=== PATIENT | male | born 1975 | race Two or more races ===

== ENCOUNTER 2017-12-24 15:33 | Inpatient (IN) | payer BC ==
[2017-12-24] MEDS ORDERED: Sodium Chloride 0.9% 2.5 ML Syringe FLUSH PRN (16:18)
[2017-12-24] MEDS ORDERED: Heparin Sodium 5,000 Units/ML Vial IVPUSH ONE (16:18)
--- NOTE | 2017-12-24 16:59 | PCM.HP ---
H&P History of Present Illness - General Date of Service: 12/24/17 Admit Problem/Dx: Admission Diagnosis/Problem Admission Diagnosis/Problem PE, Pulmonary embolism Source of Information: Patient, Old Records (clinic records) History Limitations: Reports: No Limitations - History of Present Illness Initial Comments - Free Text/Narative: This 42 year old male otherwise healthy presented to the clinic today with concerns of chest pain which has been there since Last . He reports shortness of breath, cough with exertion and shortness of breath with exertion as well. The chest pain is midsternal and worse with deep breathing or coughing. He denies hemoptysis. No wheezing. No lightheadedness or dizziness. 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 He denies lower leg swelling, pain or redness. He denies nausea, vomiting, fevers, abdominal pain urinary troubles or focal neurological deficits. He reports smoking 1/2 pp of cigarettes, no alcohol or recreational drug use. In the clinic leukocytosis noted at 14,510, hgb 17.2, CMP WNL. D Dimer elevated at 9.58. CXR negative. CT angio of chest revealed bilateral pulmonary emboli with a significant clot burden, mild atelectasis in the lungs, but no focal consolidation or infiltrate. He was admitted for pulmonary emboli with significant clot burden. He denies family history of clotting disorders, never had a clot in the past. No other long distance travel besides [employer] job and no new medications. PCP, Aaliyah Noyola [employer] - Related Data Allergies/Adverse Reactions: Allergies Allergy/AdvReac Type Severity Reaction Status Date / Time No Known Allergies Allergy Verified 12/24/17 14:45 Past Medical History - Past Health History Medical/Surgical History: Denies Medical/Surgical History Cardiovascular History: Reports: None. Denies: CAD, High Cholesterol, Hypertension Respiratory History: Denies: PE Gastrointestinal History: Reports: None. Denies: GERD, GI Bleed Genitourinary History: Reports: None Musculoskeletal History: Reports: None Psychiatric History: Reports: None Endocrine/Metabolic History: Reports: Obesity/BMI 30+. 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 Denies: Fever, Chills HEENT: Reports: No Symptoms. Denies: Headaches, Sinus Congestion, Sore Throat, Vertigo Pulmonary: Reports: Shortness of Breath, Pleuritic Chest Pain, Cough (dry, non productive). Denies: Sputum, Hemoptysis Cardiovascular: Reports: No Symptoms. Denies: Chest Pain, Palpitations, Edema, Lightheadedness, Syncope Gastrointestinal: Reports: No Symptoms. Denies: Abdominal Pain, Black Stool, Bloody Stool, Nausea, Vomiting Genitourinary: Reports: No Symptoms. Denies: Dysuria, Frequency, Burning Musculoskeletal: Reports: Back Pain (upper back with deep breathing) Psychiatric: Reports: No Symptoms Neurological: Reports: No Symptoms Hematologic/Lymphatic: Reports: No Symptoms Immunologic: Reports: No Symptoms Exam - Exam Exam: See Below - Vital Signs Weight: 112.236 kg - Exam Quality Assessment: DVT Prophylaxis. No: Supplemental Oxygen General: Alert, Oriented, Cooperative HEENT: Conjunctiva Clear, Mucosa Moist & [place], Pupils Equal, Pupils Reactive Neck: Supple Lungs: Normal Respiratory Effort (at rest), Decreased Breath Sounds (bilateral bases) Cardiovascular: Regular Rate, Regular Rhythm, Normal S1, Normal S2 GI/Abdominal Exam: Normal Bowel Sounds, Soft, Non-Tender Back Exam: Normal Inspection, Full Range of Motion Extremities: Normal Inspection, Normal Range of Motion, Non-Tender, No Pedal Edema. No: Redness Neurological: Cranial Nerves Intact Neuro Extensive - Mental Status: Alert, Oriented x3 Psychiatric: Alert, Normal Affect, Normal Mood - Problem List (1) Pulmonary emboli SNOMED Code(s): 54915051 ICD Code: I26.99 - OTHER PULMONARY EMBOLISM WITHOUT ACUTE COR PULMONALE Status: Acute Current Visit: Yes Qualifiers: Pulmonary embolism type: other Chronicity: acute Acute cor pulmonale presence: without acute cor pulmonale Qualified Code(s): I26.99 - Other pulmonary embolism without acute cor pulmonale (2) Tobacco abuse SNOMED Code(s): 516559615 ICD Code: Z72.0 - TOBACCO USE Status: Chronic Current Visit: Yes Problem List Initiated/Reviewed/Updated: Yes Orders Last 24hrs: Active Orders 24 hr Category Date Time Status Patient Status [ADT] Routine ADT 12/24/17 16:18 Ordered Intake and Output [RC] QSHIFT Care 12/24/17 16:19 Ordered Oxygen Therapy [RC] PRN Care 12/24/17 16:18 Ordered Pulse Oximetry [RC] CONTINUOUS Care 12/24/17 16:19 Ordered Telemetry Monitoring [Cardiac Monitoring] [RC] . Care 12/24/17 16:31 Ordered DIRECTED Up With Assistance [RC] ASDIRECTED Care 12/24/17 16:18 Ordered VTE/DVT Education [RC] PER UNIT ROUTINE Care 12/24/17 16:18 Ordered Vital Signs [RC] Q4H Care 12/24/17 16:18 Ordered Regular Diet [DIET] Diet 12/24/17 Dinner Ordered PTT,PARTIAL THROMBOPLSTIN TIME [COAG] Stat Lab 12/24/17 16:18 Ordered Heparin Sod,Pork In 0.45% Nacl [Heparin-1/2Ns 25,000 Med 12/24/17 16:30 Ordered Units/500] 25,000 unit in 500 ml IV TITRATE Sodium Chloride 0.9% [Saline Flush] Med 12/24/17 16:18 Ordered 2.5 ml FLUSH ASDIRECTED PRN Saline Lock Insert [OM.PC] Routine Oth 12/24/17 16:18 Ordered Resuscitation Status Routine Resus Stat 12/24/17 16:18 Ordered Medication Orders Heparin Sodium/Sodium Chloride (Heparin-1/2ns 25,000 Units/500) 25,000 unit in 500 mls @ 40.405 mls/hr IV TITRATE JUAN MIGUEL; Protocol Sodium Chloride (Saline Flush) 2.5 ml FLUSH ASDIRECTED PRN PRN Reason: Keep Vein Open Assessment/Plan Comment:: This 42 year old male admitted with bilateral pulmonary emoboli 1. PE: significant clot burden noted on CT. Will start Heparin gtt and monitor PTTs. When stable will consider NOACs. 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 Monitor on telemetry and continuous pulse ox. Leukocytosis likely secondary to PE. Will recheck in am. Tramadol for pain PRN. 2. Tobacco abuse: Hold off on nicotine replacement secondary to possible tachycardia and continuous monitoring with PEs. Dipos: 2-3 days pending improvement.
[2017-12-24] MEDS ORDERED: traMADol 50 MG Tab PO PRN (17:09)
[2017-12-24] MEDS ORDERED: Morphine 2 MG/ML Syringe IVPUSH PRN (17:10)
[2017-12-24] MEDS: Heparin Sod,Pork In 0.45% Nacl 25,000 UNIT/500 ML IV.SOLN IV SCH (17:42)
[2017-12-24] MEDS: Acetaminophen 325 MG Tab PO PRN (20:54)
[2017-12-25] MEDS: Heparin Sod,Pork In 0.45% Nacl 25,000 UNIT/500 ML IV.SOLN IV SCH ×2 (06:12→19:17)
--- NOTE | 2017-12-25 08:30 | PCM.PN ---
- General Info Date of Service: 12/25/17 Admission Dx/Problem (Free Text): Admission Diagnosis/Problem Admission Diagnosis/Problem PE, Pulmonary embolism Subjective Update: Feeling good today, didn't sleep much with pulse ox going off. Oxygen placed overnight due to dropping to mid 80s. Chest pain has improved, very little now. Still has dyspnea, especially with exertion. Otherwise no other concerns. Functional Status: Reports: Pain Controlled, Tolerating Diet, Ambulating, Urinating - Review of Systems General: Reports: No Symptoms. Denies: Fever, Weakness, Fatigue, Malaise HEENT: Reports: No Symptoms. Denies: Headaches, Sore Throat, Visual Changes Pulmonary: Reports: Pleuritic Chest Pain (with deep breathing and cough, but improved.), Cough (intermittent, dry). Denies: Hemoptysis Cardiovascular: Reports: No Symptoms. Denies: Chest Pain, Palpitations, Lightheadedness Gastrointestinal: Reports: No Symptoms. Denies: Abdominal Pain, Melena, Nausea Genitourinary: Reports: No Symptoms. Denies: Dysuria, Frequency, Burning Musculoskeletal: Reports: No Symptoms Skin: Reports: No Symptoms Neurological: Reports: No Symptoms Psychiatric: Reports: No Symptoms - Patient Data Vitals - Most Recent: Last Vital Signs Temp 98.2 F 12/25/17 08:00 Pulse 74 12/25/17 08:00 Resp 18 12/25/17 08:00 BP 134/70 12/25/17 08:00 Pulse Ox 95 12/25/17 08:00 Weight - Most Recent: 112.236 kg I&O - Last 24 Hours: Intake & Output 12/24/17 12/25/17 12/25/17 22:59 06:59 14:59 Intake Total 943 Output Total 630 Balance 313 Lab Results Last 24 Hours: Laboratory Results - last 24 hr 12/24/17 12/24/17 12/25/17 Range/Units 16:51 20:50 05:00 WBC 12.17 H (4.0-11.0) K/uL RBC 5.36 (4.50-5.90) M/uL Hgb 15.4 (13.0-17.0) g/dL Hct 44.5 (38.0-50.0) % MCV 83.0 (80.0-98.0) fL MCH 28.7 (27.0-32.0) pg MCHC 34.6 (31.0-37.0) g/dL RDW Std Deviation 41.9 (28.0-62.0) fl RDW Coeff of Isael 14 (11.0-15.0) % Plt Count 151 (150-400) K/uL MPV 9.60 (7.40-12.00) fL Neut % (Auto) 60.1 (48.0-80.0) % Lymph % (Auto) 22.1 (16.0-40.0) % [place] % (Auto) 9.0 (0.0-15.0) % Eos % (Auto) 8.1 H (0.0-7.0) % Baso % (Auto) 0.7 (0.0-1.5) % Neut # (Auto) 7.3 H (1.4-5.7) K/uL Lymph # (Auto) 2.7 H (0.6-2.4) K/uL Gilmer # (Auto) 1.1 H (0.0-0.8) K/uL Eos # (Auto) 1.0 H (0.0-0.7) K/uL Baso # (Auto) 0.1 (0.0-0.1) K/uL Nucleated RBC % 0.0 /100WBC Nucleated RBCs # 0 K/uL APTT 28.8 61.3 H (18.6-31.3) SEC Sodium (136-148) mmol/L Potassium (3.5-5.1) mmol/L Chloride (98-107) mmol/L Carbon Dioxide (21.0-32.0) mmol/L BUN (7.0-18.0) mg/dL Creatinine (0.8-1.3) mg/dL Est Cr Clr Drug Dosing mL/min Estimated GFR (MDRD) ml/min Glucose (74-106) mg/dL Calcium (8.5-10.1) mg/dL 12/25/17 12/25/17 Range/Units 05:00 05:00 WBC (4.0-11.0) K/uL RBC (4.50-5.90) M/uL Hgb (13.0-17.0) g/dL Hct (38.0-50.0) % MCV (80.0-98.0) fL MCH (27.0-32.0) pg MCHC (31.0-37.0) g/dL RDW Std Deviation (28.0-62.0) fl RDW Coeff of Isael (11.0-15.0) % Plt Count (150-400) K/uL MPV (7.40-12.00) fL Neut % (Auto) (48.0-80.0) % Lymph % (Auto) (16.0-40.0) % [place]mer % (Auto) (0.0-15.0) % Eos % (Auto) (0.0-7.0) % Baso % (Auto) (0.0-1.5) % Neut # (Auto) (1.4-5.7) K/uL Lymph # (Auto) (0.6-2.4) K/uL Gilmer # (Auto) (0.0-0.8) K/uL Eos # (Auto) (0.0-0.7) K/uL Baso # (Auto) (0.0-0.1) K/uL Nucleated RBC % /100WBC Nucleated RBCs # K/uL APTT 72.0 H (18.6-31.3) SEC Sodium 140 (136-148) mmol/L Potassium 3.8 (3.5-5.1) mmol/L Chloride 104 (98-107) mmol/L Carbon Dioxide 27.8 (21.0-32.0) mmol/L BUN 17 (7.0-18.0) mg/dL Creatinine 1.4 H (0.8-1.3) mg/dL Est Cr Clr Drug Dosing 79.92 mL/min Estimated GFR (MDRD) 55.6 ml/min Glucose 114 H (74-106) mg/dL Calcium 8.3 L (8.5-10.1) mg/dL Med Orders - Current: Current Medications Acetaminophen (Tylenol) 650 mg PO Q4H PRN PRN Reason: Pain Last Admin: 12/24/17 20:54 Dose: 650 mg Heparin Sodium/Sodium Chloride (Heparin-1/2ns 25,000 Units/500) 25,000 unit in 500 mls @ 40.405 mls/hr IV TITRATE JUAN MIGUEL; Protocol Last Admin: 12/25/17 06:12 Dose: 16 units/kg/hr, 35.916 mls/hr Morphine Sulfate (Morphine) 2 mg IVPUSH Q2H PRN PRN Reason: severe pain 7-10/10 Sodium Chloride (Saline Flush) 2.5 ml FLUSH ASDIRECTED PRN PRN Reason: Keep Vein Open Tramadol HCl (Ultram) 50 mg PO Q4H PRN PRN Reason: Pain Discontinued Medications Heparin Sodium (Porcine) (Heparin Sodium) 5,000 units IVPUSH .BOLUS ONE Stop: 12/24/17 16:19 Last Admin: 12/24/17 17:41 Dose: 5,000 units - Exam General: Alert, Oriented, Cooperative, No Acute Distress Neck: Supple Lungs: Clear to Auscultation, Normal Respiratory Effort Cardiovascular: Regular Rate, Regular Rhythm GI/Abdominal Exam: Normal Bowel Sounds, Soft, Non-Tender Back Exam: Normal Inspection, Full Range of Motion Extremities: Normal Inspection, Normal Range of Motion, Non-Tender Neurological: No New Focal Deficit Psy/Mental Status: Alert, Normal Affect, Normal Mood - Problem List & Annotations (1) Pulmonary emboli SNOMED Code(s): 65274559 Code(s): I26.99 - OTHER PULMONARY EMBOLISM WITHOUT ACUTE COR PULMONALE Status: Acute Current Visit: Yes Qualifiers: Pulmonary embolism type: other Chronicity: acute Acute cor pulmonale presence: without acute cor pulmonale Qualified Code(s): I26.99 - Other pulmonary embolism without acute cor pulmonale (2) Tobacco abuse SNOMED Code(s): 802931256 Code(s): Z72.0 - TOBACCO USE Status: Chronic Current Visit: Yes - Problem List Review Problem List Initiated/Reviewed/Updated: Yes - My Orders Last 24 Hours: My Active Orders 12/24/17 16:18 Patient Status [ADT] Routine Oxygen Therapy [RC] PRN Up With Assistance [RC] ASDIRECTED VTE/DVT Education [RC] PER UNIT ROUTINE Vital Signs [RC] Q4H Sodium Chloride 0.9% [Saline Flush] 2.5 ml FLUSH ASDIRECTED PRN Saline Lock Insert [OM.PC] Routine Resuscitation Status Routine 12/24/17 16:19 Intake and Output [RC] Q12H Pulse Oximetry [RC] CONTINUOUS 12/24/17 16:30 Heparin Sod,Pork In 0.45% Nacl [Heparin-1/2Ns 25,000 Units/500] 25,000 unit in 500 ml IV TITRATE 12/24/17 16:31 Telemetry Monitoring [Cardiac Monitoring] [RC] Q8H 12/24/17 17:09 Acetaminophen [Tylenol] 650 mg PO Q4H PRN traMADol [Ultram] 50 mg PO Q4H PRN 12/24/17 17:10 Morphine 2 mg IVPUSH Q2H PRN 12/24/17 Dinner Regular Diet [DIET] 12/25/17 11:00 PTT,PARTIAL THROMBOPLSTIN TIME [COAG] Q6H 12/25/17 17:00 PTT,PARTIAL THROMBOPLSTIN TIME [COAG] Q6H 12/25/17 23:00 PTT,PARTIAL THROMBOPLSTIN TIME [COAG] Q6H 12/26/17 05:11 BMP [BASIC METABOLIC PANEL,BMP] [CHEM] AM CBC WITH AUTO DIFF [HEME] AM 12/27/17 05:11 BMP [BASIC METABOLIC PANEL,BMP] [CHEM] AM CBC WITH AUTO DIFF [HEME] AM - Plan Plan:: This 42 year old male admitted with bilateral pulmonary emoboli 1. PE: Improved. Significant clot burden noted on CT. Continue Heparin gtt and monitor PTTs. When stable will consider NOACs. 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 Monitor on telemetry and continuous pulse ox. Leukocytosis improving. Will recheck in am. Tylenol and Tramadol for pain PRN. 2. Tobacco abuse: Hold off on nicotine replacement secondary to possible tachycardia and continuous monitoring with PEs. Dipos: 2-3 days pending improvement.
[2017-12-25] MEDS ORDERED: Heparin Sodium 5,000 Units/ML Vial IV ONE (18:00)
[2017-12-26 06:10] LABS: CHLORIDE,CL 105 mmol/L (98-107); SODIUM,NA 139 mmol/L (136-148)
[2017-12-26] MEDS: Heparin Sod,Pork In 0.45% Nacl 25,000 UNIT/500 ML IV.SOLN IV SCH (07:28)
--- NOTE | 2017-12-26 08:44 | PCM.PN ---
- General Info Date of Service: 12/26/17 Admission Dx/Problem (Free Text): Admission Diagnosis/Problem Admission Diagnosis/Problem PE, Pulmonary embolism Subjective Update: Reports shortness of breath is still there, little bit better. No further pain. But now reports R anterior knee pain just below knee cap, mainly with movement. Denies calf pain or tenderness. Functional Status: Reports: Pain Controlled, Tolerating Diet, Ambulating, Urinating - Review of Systems General: Reports: No Symptoms. Denies: Fever, Weakness Pulmonary: Reports: Shortness of Breath, Cough. Denies: Pleuritic Chest Pain, Sputum Cardiovascular: Reports: No Symptoms. Denies: Chest Pain, Palpitations, Edema Gastrointestinal: Reports: No Symptoms. Denies: Abdominal Pain, Nausea, Vomiting Genitourinary: Reports: No Symptoms. Denies: Dysuria, Frequency, Burning Musculoskeletal: Reports: No Symptoms Neurological: Reports: No Symptoms Psychiatric: Reports: No Symptoms - Patient Data Vitals - Most Recent: Last Vital Signs Temp 98.7 F 12/26/17 04:00 Pulse 82 12/26/17 04:00 Resp 20 12/26/17 04:00 BP 108/74 12/26/17 04:00 Pulse Ox 98 12/26/17 04:00 Weight - Most Recent: 112.236 kg I&O - Last 24 Hours: Intake & Output 12/25/17 12/26/17 12/26/17 22:59 06:59 14:59 Intake Total 662 Output Total 400 Balance 262 Lab Results Last 24 Hours: Laboratory Results - last 24 hr 12/25/17 12/25/17 12/25/17 Range/Units 11:15 17:06 22:53 WBC (4.0-11.0) K/uL RBC (4.50-5.90) M/uL Hgb (13.0-17.0) g/dL Hct (38.0-50.0) % MCV (80.0-98.0) fL MCH (27.0-32.0) pg MCHC (31.0-37.0) g/dL RDW Std Deviation (28.0-62.0) fl RDW Coeff of Isael (11.0-15.0) % Plt Count (150-400) K/uL MPV (7.40-12.00) fL Add Manual Diff Neutrophils % (Manual) (48.0-80.0) % Band Neutrophils % % Lymphocytes % (Manual) (16.0-40.0) % Monocytes % (Manual) (0.0-15.0) % Eosinophils % (Manual) (0.0-7.0) % Basophils % (Manual) (0.0-1.5) % Myelocytes % % Nucleated RBC % /100WBC Absolute Seg Neuts (1.4-5.7) Band Neutrophils # Lymphocytes # (Manual) (0.6-2.4) Monocytes # (Manual) (0.0-0.8) Eosinophils # (Manual) (0.0-0.7) Basophils # (Manual) (0.0-0.1) Absolute Myelocytes Nucleated RBCs # K/uL APTT 49.9 H 46.2 H 56.2 H (18.6-31.3) SEC Sodium (136-148) mmol/L Potassium (3.5-5.1) mmol/L Chloride (98-107) mmol/L Carbon Dioxide (21.0-32.0) mmol/L BUN (7.0-18.0) mg/dL Creatinine (0.8-1.3) mg/dL Est Cr Clr Drug Dosing mL/min Estimated GFR (MDRD) ml/min Glucose (74-106) mg/dL Calcium (8.5-10.1) mg/dL 12/26/17 12/26/17 12/26/17 Range/Units 05:30 05:30 06:48 WBC 10.81 (4.0-11.0) K/uL RBC 5.16 (4.50-5.90) M/uL Hgb 14.9 (13.0-17.0) g/dL Hct 43.1 (38.0-50.0) % MCV 83.5 (80.0-98.0) fL MCH 28.9 (27.0-32.0) pg MCHC 34.6 (31.0-37.0) g/dL RDW Std Deviation 41.5 (28.0-62.0) fl RDW Coeff of Isael 14 (11.0-15.0) % Plt Count 150 (150-400) K/uL MPV 9.60 (7.40-12.00) fL Add Manual Diff YES Neutrophils % (Manual) 54 (48.0-80.0) % Band Neutrophils % 3 % Lymphocytes % (Manual) 23 (16.0-40.0) % Monocytes % (Manual) 6 (0.0-15.0) % Eosinophils % (Manual) 11 H (0.0-7.0) % Basophils % (Manual) 2 H (0.0-1.5) % Myelocytes % 1 % Nucleated RBC % 0.0 /100WBC Absolute Seg Neuts 5.8 H (1.4-5.7) Band Neutrophils # 0.3 Lymphocytes # (Manual) 2.5 H (0.6-2.4) Monocytes # (Manual) 0.6 (0.0-0.8) Eosinophils # (Manual) 1.2 H (0.0-0.7) Basophils # (Manual) 0.2 H (0.0-0.1) Absolute Myelocytes 0.1 Nucleated RBCs # 0 K/uL APTT 60.7 H (18.6-31.3) SEC Sodium 139 (136-148) mmol/L Potassium 4.2 (3.5-5.1) mmol/L Chloride 105 (98-107) mmol/L Carbon Dioxide 24.2 (21.0-32.0) mmol/L BUN 17 (7.0-18.0) mg/dL Creatinine 1.2 (0.8-1.3) mg/dL Est Cr Clr Drug Dosing 93.24 mL/min Estimated GFR (MDRD) > 60.0 ml/min Glucose 115 H (74-106) mg/dL Calcium 8.6 (8.5-10.1) mg/dL Med Orders - Current: Current Medications Acetaminophen (Tylenol) 650 mg PO Q4H PRN PRN Reason: Pain Last Admin: 12/24/17 20:54 Dose: 650 mg Heparin Sodium/Sodium Chloride (Heparin-1/2ns 25,000 Units/500) 25,000 unit in 500 mls @ 40.405 mls/hr IV TITRATE JUAN MIGUEL; Protocol Last Admin: 12/26/17 07:28 Dose: 18 units/kg/hr, 40.405 mls/hr Morphine Sulfate (Morphine) 2 mg IVPUSH Q2H PRN PRN Reason: severe pain 7-10/10 Sodium Chloride (Saline Flush) 2.5 ml FLUSH ASDIRECTED PRN PRN Reason: Keep Vein Open Tramadol HCl (Ultram) 50 mg PO Q4H PRN PRN Reason: Pain Last Admin: 12/25/17 23:20 Dose: 50 mg Discontinued Medications Heparin Sodium (Porcine) (Heparin Sodium) 5,000 units IVPUSH .BOLUS ONE Stop: 12/24/17 16:19 Last Admin: 12/24/17 17:41 Dose: 5,000 units Heparin Sodium (Porcine) (Heparin Sodium) 1,500 units IV ONETIME ONE Stop: 12/25/17 18:01 Last Admin: 12/25/17 17:57 Dose: 1,500 units - Exam Quality Assessment: Supplemental Oxygen, DVT Prophylaxis (heparin gtt) General: Alert, Oriented, Cooperative, No Acute Distress Neck: Supple Lungs: Clear to Auscultation, Normal Respiratory Effort Cardiovascular: Regular Rate, Regular Rhythm GI/Abdominal Exam: Normal Bowel Sounds, Soft, Non-Tender Back Exam: Normal Inspection, Full Range of Motion Extremities: Normal Inspection, Normal Range of Motion, Other (joint tenderness to R knee just below patella.) Neurological: No New Focal Deficit Psy/Mental Status: Alert, Normal Affect, Normal Mood - Problem List & Annotations (1) Pulmonary emboli SNOMED Code(s): 54051287 Code(s): I26.99 - OTHER PULMONARY EMBOLISM WITHOUT ACUTE COR PULMONALE Status: Acute Current Visit: Yes Qualifiers: Pulmonary embolism type: other Chronicity: acute Acute cor pulmonale presence: without acute cor pulmonale Qualified Code(s): I26.99 - Other pulmonary embolism without acute cor pulmonale (2) Right knee pain SNOMED Code(s): 18258346 Code(s): M25.561 - PAIN IN RIGHT KNEE Status: Acute Current Visit: Yes Qualifiers: Chronicity: acute Qualified Code(s): M25.561 - Pain in right knee (3) Tobacco abuse SNOMED Code(s): 539376430 Code(s): Z72.0 - TOBACCO USE Status: Chronic Current Visit: Yes - Problem List Review Problem List Initiated/Reviewed/Updated: Yes - My Orders Last 24 Hours: My Active Orders 12/25/17 11:55 Echo Comp wo Cont [US] Urgent 12/26/17 08:10 Communication Order [RC] PRN 12/26/17 08:39 Venous Doppler Lwr Ext Bi [US] Routine 12/27/17 05:11 BMP [BASIC METABOLIC PANEL,BMP] [CHEM] AM CBC WITH AUTO DIFF [HEME] AM - Plan Plan:: This 42 year old male admitted with bilateral pulmonary emoboli 1. PE: Improved. Continue Heparin gtt and monitor PTTs. When stable will consider NOACs. Monitor on telemetry and continuous pulse ox. Leukocytosis resolved. Tylenol and Tramadol for pain PRN. Would like to see off oxygen and less dyspneic prior to discharge. 2. R knee pain: Will obtained Doppler bilaterally to rule out DVT. But does appear more arthritic in nature. ICE ok and pain medications PRN. 3.Tobacco abuse: Hold off on nicotine replacement secondary to possible tachycardia and continuous monitoring with PEs. Dispo: 2-3 days pending improvement.
--- NOTE | 2017-12-26 10:13 | US ---
ULTRASOUND EXAMINATION OF the right and left lower extremities WITH DOPPLER HISTORY: Pain FINDINGS: Examination of the right and left legs were leg was performed from the groin to the calf region. The mid to distal right femoral vein appears partially compressible. There is adjacent flow and augmenta tion noted. All other visualized segments including common femoral, proximal greater saphenous, super ficial femoral, popliteal and calf veins appear patent with good compressibility and augmentation. T here is no evidence of deep vein thrombosis. IMPRESSION: 1. No evidence of an acute DVT. 2. Partial compression of the mid to distal right femoral vein suggesting a chronic DVT with adequate adjacent flow.
[2017-12-26] MEDS ORDERED: Nicotine 14 MG/24 Hr Patch TRDERM SCH (12:15)
[2017-12-26] MEDS ORDERED: Apixaban 5 MG Tab PO SCH (12:45)
[2017-12-26] MEDS: Acetaminophen 325 MG Tab PO PRN (13:23)
--- NOTE | 2017-12-26 14:06 | PCM.DCSUM1 ---
<Germaine Landaverde M - Last Filed: 12/26/17 15:36> Discharge Summary - Hospital Course Brief History: This 42 year old male otherwise healthy presented to the clinic today with concerns of chest pain which has been there since Last . He reports shortness of breath, cough with exertion and shortness of breath with exertion as well. The chest pain is midsternal and worse with deep breathing or coughing. He denies hemoptysis. No wheezing. No lightheadedness or dizziness. 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 He denies lower leg swelling, pain or redness. He denies nausea, vomiting, fevers, abdominal pain urinary troubles or focal neurological deficits. He reports smoking 1/2 pp of cigarettes, no alcohol or recreational drug use. In the clinic leukocytosis noted at 14,510, hgb 17.2, CMP WNL. D Dimer elevated at 9.58. CXR negative. CT angio of chest revealed bilateral pulmonary emboli with a significant clot burden, mild atelectasis in the lungs, but no focal consolidation or infiltrate. He was admitted for pulmonary emboli with significant clot burden. He denies family history of clotting disorders, never had a clot in the past. No other long distance travel besides [employer] job and no new medications. PCP, Aaliyah Noyola NP - Discharge Data Discharge Date: 12/26/17 Discharge Disposition: Home, Self-Care 01 Condition: Good - Discharge Diagnosis/Problem(s) (1) Pulmonary emboli SNOMED Code(s): 57504889 ICD Code: I26.99 - OTHER PULMONARY EMBOLISM WITHOUT ACUTE COR PULMONALE Status: Acute Current Visit: Yes Qualifiers: Pulmonary embolism type: other Chronicity: acute Acute cor pulmonale presence: without acute cor pulmonale Qualified Code(s): I26.99 - Other pulmonary embolism without acute cor pulmonale (2) Right knee pain SNOMED Code(s): 35334829 ICD Code: M25.561 - PAIN IN RIGHT KNEE Status: Acute Current Visit: Yes Qualifiers: Chronicity: acute Qualified Code(s): M25.561 - Pain in right knee (3) Tobacco abuse SNOMED Code(s): 567012077 ICD Code: Z72.0 - TOBACCO USE Status: Chronic Current Visit: Yes - Patient Instructions Diet: Regular Diet as Tolerated Activity: Cough & Deep Breathe, No Strenuous Activities Driving: Do Not Drive (No tank truck operator until January 09) Showering/Bathing: October Shower Notify Provider of: Increased Pain, Swelling and Redness Other/Special Instructions: Work release provided, Ok to return to work Sunday light duty. 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 No NSAIDs while on blood thinner , Eliquis. This includes (Ibuprofen, Motrin, Advil, and Aleve.) OK to use Tylenol. Heat and Ice therapy to knee as needed, alternating if wanted. - Discharge Plan *PRESCRIPTION DRUG MONITORING PROGRAM REVIEWED*: Not Applicable *COPY OF PRESCRIPTION DRUG MONITORING REPORT IN PATIENT MAT: Not Applicable Prescriptions/Med Rec: Apixaban [Eliquis] 10 mg PO BID #70 tablet Home Medications: Home Meds Acetaminophen [Tylenol] 650 mg PO Q4H PRN tablet 12/26/17 [Rx] Apixaban [Eliquis] 10 mg PO BID #70 tablet 12/26/17 [Rx] Patient Handouts: Pulmonary Embolism, Apixaban oral tablets Referrals: Aaliyah Noyola, CLEARANCE COORDINATOR [Primary Care Provider] - 01/08/18 10:00 am - Discharge Summary/Plan Comment DC Time >30 min.: No Discharge Summary/Plan Comment: Discharge Diagnoses: Pulmonary embolism, bilaterally Chronic R femoral DVT Tobacco abuse Adarsh was admitted from the clinic and started on heparin gtt due to dignificant clot burden. He was noted to be dyspneic and activity and had some pleuritic chest pain, otherwise not hemodynamically unstable. ECHO was obtained , which was WNL and did not show and strain to R heart. He was maintained on heparin gtt for 2 days. Today he was very eager to be discharged. Continues to have some dyspnea and noted to be hypoxic with activity, dropping to 87% on RA with activity. On RA at rest he is 94%. With activity on 1 L NC patient oxygen increased to 90%. He will be sent home with 1 l NC oxygen with activity. He will be reassessed by PCP next week not continued need of oxygen. He was started on Eliquis 10 mg BID for 7 days then will transition to 5 mg BID for 3 months. He will need follow up hypercoaguable labs drawn post anticoagulation therapy. Started having some R knee pain today, knee is NOT swollen, erythematous, or hot. Tender just below patella. Tylenol and Ice have helped. Xray of knee reveals no acute abnormality. Doppler of bilateral legs shows chronic DVT to R mid to distal femoral vein, partial compression noted, but with adequate adjacent blood flow. He will also need repeat CT to evaluate lympadenopathy noted on CT. He was encouraged to stop smoking, which he currently is not ready to completely commit to but reports he is working on cutting down to quit. Dr Whitman spoke with pulmonology, please see note. No tank truck operator for 2 weeks, and was highly encouraged to rethink this as a profession with DVT and PE. He can return to work on Sunday at light duty. he is to return to ED or clinic if concerns should arise. He is to follow up with PCP in 1 week. - General Info Date of Service: 12/26/17 Admission Dx/Problem (Free Text: Admission Diagnosis/Problem Admission Diagnosis/Problem PE, Pulmonary embolism Subjective Update: Eager for discharge. at bedside. Discussed light work duty. Denies chest pain. Shortness of breath with activity, but is improving. Functional Status: Reports: Pain Controlled, Tolerating Diet, Ambulating, Urinating - Review of Systems General: Reports: No Symptoms. Denies: Fever, Weakness, Fatigue HEENT: Reports: No Symptoms. Denies: Headaches, Sore Throat, Visual Changes Pulmonary: Reports: No Symptoms. Denies: Shortness of Breath Cardiovascular: Reports: No Symptoms. Denies: Chest Pain Gastrointestinal: Reports: No Symptoms. Denies: Abdominal Pain, Nausea, Vomiting Genitourinary: Reports: No Symptoms. Denies: Dysuria, Frequency, Burning Musculoskeletal: Reports: Joint Pain (R knee pain, but is getting somewhat better.) Skin: Reports: No Symptoms Neurological: Reports: No Symptoms Psychiatric: Reports: No Symptoms - Patient Data Vitals - Most Recent: Last Vital Signs Temp 98.6 F 12/26/17 11:34 Pulse 88 12/26/17 11:34 Resp 16 12/26/17 11:34 BP 110/78 12/26/17 11:34 Pulse Ox 95 12/26/17 11:34 Weight - Most Recent: 247 lb 7 oz I&O - Last 24 hours: Intake & Output 12/25/17 12/26/17 12/26/17 22:59 06:59 14:59 Intake Total 662 Output Total 400 Balance 262 Lab Results - Last 24 hrs: Laboratory Results - last 24 hr 12/25/17 12/25/17 12/26/17 Range/Units 17:06 22:53 05:30 WBC 10.81 (4.0-11.0) K/uL RBC 5.16 (4.50-5.90) M/uL Hgb 14.9 (13.0-17.0) g/dL Hct 43.1 (38.0-50.0) % MCV 83.5 (80.0-98.0) fL MCH 28.9 (27.0-32.0) pg MCHC 34.6 (31.0-37.0) g/dL RDW Std Deviation 41.5 (28.0-62.0) fl RDW Coeff of Isael 14 (11.0-15.0) % Plt Count 150 (150-400) K/uL MPV 9.60 (7.40-12.00) fL Add Manual Diff YES Neutrophils % (Manual) 54 (48.0-80.0) % Band Neutrophils % 3 % Lymphocytes % (Manual) 23 (16.0-40.0) % Monocytes % (Manual) 6 (0.0-15.0) % Eosinophils % (Manual) 11 H (0.0-7.0) % Basophils % (Manual) 2 H (0.0-1.5) % Myelocytes % 1 % Nucleated RBC % 0.0 /100WBC Absolute Seg Neuts 5.8 H (1.4-5.7) Band Neutrophils # 0.3 Lymphocytes # (Manual) 2.5 H (0.6-2.4) Monocytes # (Manual) 0.6 (0.0-0.8) Eosinophils # (Manual) 1.2 H (0.0-0.7) Basophils # (Manual) 0.2 H (0.0-0.1) Absolute Myelocytes 0.1 Nucleated RBCs # 0 K/uL APTT 46.2 H 56.2 H (18.6-31.3) SEC Sodium (136-148) mmol/L Potassium (3.5-5.1) mmol/L Chloride (98-107) mmol/L Carbon Dioxide (21.0-32.0) mmol/L BUN (7.0-18.0) mg/dL Creatinine (0.8-1.3) mg/dL Est Cr Clr Drug Dosing mL/min Estimated GFR (MDRD) ml/min Glucose (74-106) mg/dL Calcium (8.5-10.1) mg/dL 12/26/17 12/26/17 Range/Units 05:30 06:48 WBC (4.0-11.0) K/uL RBC (4.50-5.90) M/uL Hgb (13.0-17.0) g/dL Hct (38.0-50.0) % MCV (80.0-98.0) fL MCH (27.0-32.0) pg MCHC (31.0-37.0) g/dL RDW Std Deviation (28.0-62.0) fl RDW Coeff of Isael (11.0-15.0) % Plt Count (150-400) K/uL MPV (7.40-12.00) fL Add Manual Diff Neutrophils % (Manual) (48.0-80.0) % Band Neutrophils % % Lymphocytes % (Manual) (16.0-40.0) % Monocytes % (Manual) (0.0-15.0) % Eosinophils % (Manual) (0.0-7.0) % Basophils % (Manual) (0.0-1.5) % Myelocytes % % Nucleated RBC % /100WBC Absolute Seg Neuts (1.4-5.7) Band Neutrophils # Lymphocytes # (Manual) (0.6-2.4) Monocytes # (Manual) (0.0-0.8) Eosinophils # (Manual) (0.0-0.7) Basophils # (Manual) (0.0-0.1) Absolute Myelocytes Nucleated RBCs # K/uL APTT 60.7 H (18.6-31.3) SEC Sodium 139 (136-148) mmol/L Potassium 4.2 (3.5-5.1) mmol/L Chloride 105 (98-107) mmol/L Carbon Dioxide 24.2 (21.0-32.0) mmol/L BUN 17 (7.0-18.0) mg/dL Creatinine 1.2 (0.8-1.3) mg/dL Est Cr Clr Drug Dosing 93.24 mL/min Estimated GFR (MDRD) > 60.0 ml/min Glucose 115 H (74-106) mg/dL Calcium 8.6 (8.5-10.1) mg/dL Med Orders - Current: Current Medications Acetaminophen (Tylenol) 650 mg PO Q4H PRN PRN Reason: Pain Last Admin: 12/26/17 13:23 Dose: 650 mg Apixaban (Eliquis) 10 mg PO BID JUAN MIGUEL Last Admin: 12/26/17 13:13 Dose: 10 mg Morphine Sulfate (Morphine) 2 mg IVPUSH Q2H PRN PRN Reason: severe pain 7-10/10 Nicotine (Habitrol) 14 mg TRDERM Q24H [facility] Last Admin: 12/26/17 12:52 Dose: 14 mg Sodium Chloride (Saline Flush) 2.5 ml FLUSH ASDIRECTED PRN PRN Reason: Keep Vein Open Tramadol HCl (Ultram) 50 mg PO Q4H PRN PRN Reason: Pain Last Admin: 12/25/17 23:20 Dose: 50 mg Discontinued Medications Heparin Sodium (Porcine) (Heparin Sodium) 5,000 units IVPUSH .BOLUS ONE Stop: 12/24/17 16:19 Last Admin: 12/24/17 17:41 Dose: 5,000 units Heparin Sodium (Porcine) (Heparin Sodium) 1,500 units IV ONETIME ONE Stop: 12/25/17 18:01 Last Admin: 12/25/17 17:57 Dose: 1,500 units Heparin Sodium/Sodium Chloride (Heparin-1/2ns 25,000 Units/500) 25,000 unit in 500 mls @ 40.405 mls/hr IV TITRATE [facility]; Protocol Last Admin: 12/26/17 07:28 Dose: 18 units/kg/hr, 40.405 mls/hr - Exam General: Reports: Alert, Oriented, Cooperative, No Acute Distress Lungs: Reports: Clear to Auscultation, Normal Respiratory Effort Cardiovascular: Reports: Regular Rate, Regular Rhythm GI/Abdominal Exam: Normal Bowel Sounds, Soft, Non-Tender Back Exam: Reports: Normal Inspection, Full Range of Motion Extremities: Normal Inspection, Normal Range of Motion, No Pedal Edema, Normal Capillary Refill. No: Joint Swelling (no R knee swelling.), Increased Warmth, Redness Neurological: Reports: No New Focal Deficit Psy/Mental Status: Reports: Alert, Normal Affect, Normal Mood <Garo Whitman - Last Filed: 12/26/17 15:52> Discharge Summary - Hospital Course Free Text/Narrative:: I have discussed with Doctor Hilton marinelli , Pulmonologyst at [facility] and recommended patient to have repeat Ct chest in 3 months for f/ up mediastinal lymphadenopathy and to stay home for the next 2 weeks. To go home with Eliquis and O2 and to be reevaluated in 2 weeks for O2 need by his PCP - Patient Data Vitals - Most Recent: Last Vital Signs Temp 98.6 F 12/26/17 11:34 Pulse 88 12/26/17 11:34 Resp 16 12/26/17 11:34 BP 110/78 12/26/17 11:34 Pulse Ox 95 12/26/17 11:34 I&O - Last 24 hours: Intake & Output 12/26/17 12/26/17 12/26/17 06:59 14:59 22:59 Intake Total 662 Output Total 400 Balance 262 Lab Results - Last 24 hrs: Laboratory Results - last 24 hr 12/25/17 12/25/17 12/26/17 Range/Units 17:06 22:53 05:30 WBC 10.81 (4.0-11.0) K/uL RBC 5.16 (4.50-5.90) M/uL Hgb 14.9 (13.0-17.0) g/dL Hct 43.1 (38.0-50.0) % MCV 83.5 (80.0-98.0) fL MCH 28.9 (27.0-32.0) pg MCHC 34.6 (31.0-37.0) g/dL RDW Std Deviation 41.5 (28.0-62.0) fl RDW Coeff of Isael 14 (11.0-15.0) % Plt Count 150 (150-400) K/uL MPV 9.60 (7.40-12.00) fL Add Manual Diff YES Neutrophils % (Manual) 54 (48.0-80.0) % Band Neutrophils % 3 % Lymphocytes % (Manual) 23 (16.0-40.0) % Monocytes % (Manual) 6 (0.0-15.0) % Eosinophils % (Manual) 11 H (0.0-7.0) % Basophils % (Manual) 2 H (0.0-1.5) % Myelocytes % 1 % Nucleated RBC % 0.0 /100WBC Absolute Seg Neuts 5.8 H (1.4-5.7) Band Neutrophils # 0.3 Lymphocytes # (Manual) 2.5 H (0.6-2.4) Monocytes # (Manual) 0.6 (0.0-0.8) Eosinophils # (Manual) 1.2 H (0.0-0.7) Basophils # (Manual) 0.2 H (0.0-0.1) Absolute Myelocytes 0.1 Nucleated RBCs # 0 K/uL APTT 46.2 H 56.2 H (18.6-31.3) SEC Sodium (136-148) mmol/L Potassium (3.5-5.1) mmol/L Chloride (98-107) mmol/L Carbon Dioxide (21.0-32.0) mmol/L BUN (7.0-18.0) mg/dL Creatinine (0.8-1.3) mg/dL Est Cr Clr Drug Dosing mL/min Estimated GFR (MDRD) ml/min Glucose (74-106) mg/dL Calcium (8.5-10.1) mg/dL 18 12/26/17 Range/Units 05:30 06:48 WBC (4.0-11.0) K/uL RBC (4.50-5.90) M/uL Hgb (13.0-17.0) g/dL Hct (38.0-50.0) % MCV (80.0-98.0) fL MCH (27.0-32.0) pg MCHC (31.0-37.0) g/dL RDW Std Deviation (28.0-62.0) fl RDW Coeff of Isael (11.0-15.0) % Plt Count (150-400) K/uL MPV (7.40-12.00) fL Add Manual Diff Neutrophils % (Manual) (48.0-80.0) % Band Neutrophils % % Lymphocytes % (Manual) (16.0-40.0) % Monocytes % (Manual) (0.0-15.0) % Eosinophils % (Manual) (0.0-7.0) % Basophils % (Manual) (0.0-1.5) % Myelocytes % % Nucleated RBC % /100WBC Absolute Seg Neuts (1.4-5.7) Band Neutrophils # Lymphocytes # (Manual) (0.6-2.4) Monocytes # (Manual) (0.0-0.8) Eosinophils # (Manual) (0.0-0.7) Basophils # (Manual) (0.0-0.1) Absolute Myelocytes Nucleated RBCs # K/uL APTT 60.7 H (18.6-31.3) SEC Sodium 139 (136-148) mmol/L Potassium 4.2 (3.5-5.1) mmol/L Chloride 105 (98-107) mmol/L Carbon Dioxide 24.2 (21.0-32.0) mmol/L BUN 17 (7.0-18.0) mg/dL Creatinine 1.2 (0.8-1.3) mg/dL Est Cr Clr Drug Dosing 93.24 mL/min Estimated GFR (MDRD) > 60.0 ml/min Glucose 115 H (74-106) mg/dL Calcium 8.6 (8.5-10.1) mg/dL Med Orders - Current: Current Medications Acetaminophen (Tylenol) 650 mg PO Q4H PRN PRN Reason: Pain Last Admin: 12/26/17 13:23 Dose: 650 mg Apixaban (Eliquis) 10 mg PO BID [facility] Last Admin: 12/26/17 13:13 Dose: 10 mg Morphine Sulfate (Morphine) 2 mg IVPUSH Q2H PRN PRN Reason: severe pain 7-10/10 Nicotine (Habitrol) 14 mg TRDERM Q24H [facility] Last Admin: 12/26/17 12:52 Dose: 14 mg Sodium Chloride (Saline Flush) 2.5 ml FLUSH ASDIRECTED PRN PRN Reason: Keep Vein Open Tramadol HCl (Ultram) 50 mg PO Q4H PRN PRN Reason: Pain Last Admin: 12/25/17 23:20 Dose: 50 mg Discontinued Medications Heparin Sodium (Porcine) (Heparin Sodium) 5,000 units IVPUSH .BOLUS ONE Stop: 12/24/17 16:19 Last Admin: 12/24/17 17:41 Dose: 5,000 units Heparin Sodium (Porcine) (Heparin Sodium) 1,500 units IV ONETIME ONE Stop: 12/25/17 18:01 Last Admin: 12/25/17 17:57 Dose: 1,500 units Heparin Sodium/Sodium Chloride (Heparin-1/2ns 25,000 Units/500) 25,000 unit in 500 mls @ 40.405 mls/hr IV TITRATE JUAN MIGUEL; Protocol Last Admin: 12/26/17 07:28 Dose: 18 units/kg/hr, 40.405 mls/hr
--- NOTE | 2017-12-26 15:35 | CR ---
EXAMINATION: Right knee HISTORY: Pain COMPARISON: None TECHNIQUE: 3 views FINDINGS/IMPRESSION: There is no acute osseous abnormality, dislocation, or fracture. No joint effusi on or soft tissue swelling. Early osteophyte formation within the patellofemoral compartment.
--- NOTE | 2017-12-27 14:19 | ECHO ---
EXAM DATE: 12/24/17 PATIENT'S AGE: 42 The echocardiogram report can be seen in this patient's EMR (Electronic Medical Record) in the Reports section. The report has also been scanned into PACs. NIKOLAY
== END 2017-12-26 16:00 | disposition home or self-care (01) | DRG 134 ==
LOC: MW.MS 15:33
PROVIDERS: ADMIT Internal Medicine; ATTEND Internal Medicine
DX: I26.99 Other pulmonary embolism without acute cor pulmonale (principal); M25.561 Pain in right knee; R59.1 Generalized enlarged lymph nodes; Z72.0 Tobacco use
CPT/HCPCS: 36415; 73562-26-RT; 73562-RT; 80048; 85025; 85730; 93306; 93970; 93970-26; A9270-GY; J1644

== ENCOUNTER 2018-08-03 13:34 | Emergency (ER) | payer BC, OTHER ==
--- NOTE | 2018-08-03 13:47 | EDM.PDOC ---
ED HPI GENERAL MEDICAL PROBLEM - General Chief Complaint: Head Injury Stated Complaint: HIT IN FACE BY YUMIKO WORK RELATED Time Seen by Provider: 08/03/18 13:47 Source of Information: Reports: Patient History Limitations: Reports: No Limitations - History of Present Illness INITIAL COMMENTS - FREE TEXT/NARRATIVE: HISTORY AND PHYSICAL: History of present illness: Patient is a 45-year-old male here with complaint of work-related injury. He states he was on the ground using a pickup yumiko when the block underneath it broke and the Yumiko came down hitting him on the left side of the face, left hand , and right knee. The yumiko weighs approximately 10 pounds. He denies any loss of consciousness, vomiting, visual changes, headache. He is uncertain of tetanus status. Review of systems: As per history of present illness and below otherwise all systems reviewed and negative. Past medical history: As per history of present illness and as reviewed below otherwise noncontributory. Surgical history: As per history of present illness and as reviewed below otherwise noncontributory. Social history: No reported history of drug or alcohol abuse. Family history: As per history of present illness and as reviewed below otherwise noncontributory. Physical exam: General: Patient sitting comfortably in no acute distress and nontoxic appearing HEENT: There is a very superficial 3cm laceration to the left side. Minimal tenderness around the lower orbit of the eye without any step offs or crepitus. normocephalic, pupils reactive, negative for conjunctival pallor or scleral icterus, mucous membranes moist, throat clear, neck supple, nontender, trachea midline. No meningeal signs. Lungs: Clear to auscultation, breath sounds equal bilaterally, chest nontender. Heart: S1S2, regular, negative for clicks, rubs, or overt murmur. Abdomen: Soft, nondistended, nontender. Negative for masses or hepatosplenomegaly. Negative for costovertebral tenderness. Pelvis: Stable nontender. Genitourinary: Deferred. Rectal: Deferred. Extremities: Abrasion to the right medial thigh just superior to the knee. Small superfical cut the the left hand in the webspace of pinky and ring finger. No bony tenderness to palpation. negative for cords or calf pain. Neurovascular unremarkable. Neuro: Awake, alert, oriented. Cranial nerves II through XII unremarkable. Cerebellum unremarkable. Motor and sensory unremarkable throughout. Exam nonfocal. Notes: Diagnostics: Facial x-ray Therapeutics: Tdap Prescriptions: None Impression: Head injury, laceration Plan: 1. Keep the area clean and dry as instructed 2. Follow up with primary care provider 3. Return to ED as needed as discussed Definitive disposition and diagnosis as appropriate pending reevaluation and review of above. left side of face Pain Score (Numeric/FACES): 6 - Related Data Allergies Allergy/AdvReac Type Severity Reaction Status Date / Time bee pollen Allergy Cannot Verified 08/03/18 13:44 Remember bee venom protein (honey bee) Allergy Cannot Verified 08/03/18 13:44 Remember Home Meds: Home Meds . [No Known Home Meds] 08/03/18 [History] Past Medical History - Past Health History Medical/Surgical History: Denies Medical/Surgical History Cardiovascular History: Reports: None Respiratory History: Reports: PE Other Respiratory History: current dx of PE Gastrointestinal History: Reports: None Genitourinary History: Reports: None Musculoskeletal History: Reports: None Psychiatric History: Reports: None Endocrine/Metabolic History: Reports: Obesity/BMI 30+ Oncologic (Cancer) History: Reports: None - Infectious Disease History Infectious Disease History: Reports: Chicken Pox Social & Family History - Family History Family Medical History: Noncontributory Endocrine/Metabolic: Reports: Diabetes, type II, Other (See Below) Other Endocrine/Metabolic Family History: Father has diabetes - Caffeine Use Caffeine Use: Reports: Coffee - Living Situation & Occupation Living situation: Reports: 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 ED EXAM, HEAD INJURY - Physical Exam Exam: See Below (see dictation) ED LACERATION/WOUND & JESSE PROC - Laceration/Wound Repair Left Face Lac/wound length in cm: 3 Appearance: Superficial, Clean Distal NVT: Neuro & Vascular Intact, No Tendon Injury Skin Prep: Saline Saline irrigation (cc's): 250 Exploration/Debridement/Repair: Wound Explored, In a Bloodless Field, Explored to Base Closed with: Steri-Strips Course - Vital Signs Last Recorded V/S: Last Vital Signs Temp 97.4 F 08/03/18 13:44 Pulse 63 08/03/18 13:44 Resp 18 08/03/18 13:44 BP 130/86 08/03/18 13:44 Pulse Ox 94 L 08/03/18 13:44 - Orders/Labs/Meds Orders: Active Orders 24 hr Category Date Time Status Vaccines to be Administered [RC] PER UNIT ROUTINE Care 08/03/18 13:56 Ordered Facial Bones Comp Min 3V [CR] Stat Exams 08/03/18 13:56 Ordered Meds: Medications Discontinued Medications Generic Name Dose Route Start Last Admin Trade Name Freq PRN Reason Stop Dose Admin Diphtheria/Tetanus/Acell Pertussis 0.5 ml 08/03/18 13:56 08/03/18 14:13 Adacel IM 08/03/18 13:57 0.5 ml .ONCE ONE Administration Octyl Cyanoacrylate 1 applic 08/03/18 15:21 Dermabond Advance TOP 08/03/18 15:22 ONETIME ONE Departure - Departure Time of Disposition: 15:37 Disposition: Home, Self-Care 01 Condition: Good Clinical Impression: Head injury, Laceration - Discharge Information Referrals: PCP,None [Primary Care Provider] - Forms: ED Department Discharge Additional Instructions: The following information is given to patients seen in the emergency department who are being discharged to home. This information is to outline your options for follow-up care. We provide all patients seen in our emergency department with a follow-up referral. The need for follow-up, as well as the timing and circumstances, are variable depending upon the specifics of your emergency department visit. If you don't have a primary care physician on staff, we will provide you with a referral. We always advise you to contact your personal physician following an emergency department visit to inform them of the circumstance of the visit and for follow-up with them and/or the need for any referrals to a consulting specialist. The emergency department will also refer you to a specialist when appropriate. This referral assures that you have the opportunity for follow-up care with a specialist. All of these measure are taken in an effort to provide you with optimal care, which includes your follow-up. Under all circumstances we always encourage you to contact your private physician who remains a resource for coordinating your care. When calling for follow-up care, please make the office aware that this follow-up is from your recent emergency room visit. If for any reason you are refused follow-up, please contact the [facility] Emergency Department at and asked to speak to the emergency department charge nurse. ZAH[facility] [address] [place] [address] [facility] [address] [place] [address] 1. Keep the area clean and dry as instructed 2. Follow up with primary care provider 3. Return to ED as needed as discussed - My Orders Last 24 Hours: My Active Orders 08/03/18 13:56 Vaccines to be Administered [RC] PER UNIT ROUTINE Facial Bones Comp Min 3V [CR] Stat - Assessment/Plan Last 24 Hours: My Active Orders 08/03/18 13:56 Vaccines to be Administered [RC] PER UNIT ROUTINE Facial Bones Comp Min 3V [CR] Stat
[2018-08-03] MEDS ORDERED: Diphtheria,Pertussis(Acell),Tetanus Vaccine 0.5 ML Syringe IM ONE (13:56)
[2018-08-03] MEDS ORDERED: Octyl 2-Cyanoacrylate 1 Tube TOP ONE (15:21)
--- NOTE | 2018-08-05 13:34 | CR ---
EXAM DATE: 08/03/18 PATIENT'S AGE: 43 Patient: JERRICA DE SANTIAGO Facility: [facility] Site . Site : [id number] Study: XRay-Facial [id number] 3:04:58 PM Ordering Physician: Doctor Caicedo Final Report: Indication: Hit in face with jacket work. Technique: Five views of the facial bones were obtained. Comparison: None Findings: The bony orbits are intact. The mandible is intact. The patient is edentulous. No definite acute fracture or subluxation is identified. Impression: No definite fracture. However CT is much more sensitive for the evaluation of facial bone fracture. Dictated by Deb James MD @ Aug 03 2018 3:18PM Signed by: Deb James MD @08/03/2018 3:19:07 PM (Electronic Signature) Report Signed by Proxy. MTDD
== END 2018-08-03 16:01 | disposition home or self-care (01) ==
LOC: MW.ED 13:34
DX: S01.81XA Laceration without foreign body of other part of head, initial encounter (principal); W22.8XXA Striking against or struck by other objects, initial encounter; Z23 Encounter for immunization; Z91.030 Bee allergy status; Y99.0 Civilian activity done for income or pay
CPT/HCPCS: 70150; 90471; 90715; 99283; A9270

== ENCOUNTER 2018-08-05 10:58 | Emergency (ER) | payer OTHER ==
[2018-08-05] MEDS ORDERED: cefTRIAXone 1 GM Vial IM ONE (11:25)
[2018-08-05] MEDS ORDERED: Lidocaine 1% 20 ML MDV INJECT ONE (11:30)
--- NOTE | 2018-08-05 11:34 | EDM.PDOC ---
ED HPI GENERAL MEDICAL PROBLEM - General Chief Complaint: Wound Recheck Stated Complaint: FACE INJURY Time Seen by Provider: 08/05/18 11:00 - History of Present Illness INITIAL COMMENTS - FREE TEXT/NARRATIVE: HISTORY AND PHYSICAL: History of present illness: Patient's a 43-year-old white male was seen several days prior status post multiple trauma she sustained a superficial laceration to his left face that was Steri-Stripped patient has subsequently developed some scant purulent discharge to the wound. He denies fever chills nausea vomiting or other complaints Review of systems: As per history of present illness and below otherwise all systems reviewed and negative. Past medical history: As per history of present illness and as reviewed below otherwise noncontributory. Surgical history: As per history of present illness and as reviewed below otherwise noncontributory. Social history: No reported history of drug or alcohol abuse. Family history: As per history of present illness and as reviewed below otherwise noncontributory. Physical exam: HEENT: Atraumatic, normocephalic, pupils reactive, negative for conjunctival pallor or scleral icterus, mucous membranes moist, throat clear, neck supple, nontender, trachea midline. Patient has Steri-Strips in place and with a small amount of pressure there is a scant. The material that is exuded. Lungs: Clear to auscultation, breath sounds equal bilaterally, chest nontender. Heart: S1S2, regular, negative for clicks, rubs, or JVD. Abdomen: Soft, nondistended, nontender. Negative for masses or hepatosplenomegaly. Negative for costovertebral tenderness. Pelvis: Stable nontender. Genitourinary: Deferred. Rectal: Deferred. Extremities: Atraumatic, negative for cords or calf pain. Neurovascular unremarkable. Neuro: Awake, alert, oriented. Cranial nerves II through XII unremarkable. Cerebellum unremarkable. Motor and sensory unremarkable throughout. Exam nonfocal. Diagnostics: CBC CMP wound culture Therapeutics: Rocephin 1 g IM Impression: #1 cellulitis Definitive disposition and diagnosis as appropriate pending reevaluation and review of above. - Related Data Allergies Allergy/AdvReac Type Severity Reaction Status Date / Time bee pollen Allergy Cannot Verified 08/03/18 13:44 Remember bee venom protein (honey bee) Allergy Cannot Verified 08/03/18 13:44 Remember Home Meds: Home Meds . [No Known Home Meds] 08/03/18 [History] Past Medical History - Past Health History Medical/Surgical History: Denies Medical/Surgical History Cardiovascular History: Reports: None Respiratory History: Reports: PE Other Respiratory History: current dx of PE Gastrointestinal History: Reports: None Genitourinary History: Reports: None Musculoskeletal History: Reports: None Psychiatric History: Reports: None Endocrine/Metabolic History: Reports: Obesity/BMI 30+ Oncologic (Cancer) History: Reports: None - Infectious Disease History Infectious Disease History: Reports: Chicken Pox Social & Family History - Family History Family Medical History: Noncontributory Endocrine/Metabolic: Reports: Diabetes, type II, Other (See Below) Other Endocrine/Metabolic Family History: Father has diabetes - Tobacco Use Smoking Status *Q: Never Smoker - Caffeine Use Caffeine Use: Reports: Coffee - Recreational Drug Use Recreational Drug Use: No - Living Situation & Occupation Living situation: Reports: 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 ED EXAM, GENERAL - Physical Exam Exam: See Below (See dictation) Course - Vital Signs Last Recorded V/S: Last Vital Signs Temp 36.0 C 08/05/18 11:27 Pulse 64 08/05/18 11:27 Resp 18 08/05/18 11:27 BP 142/87 H 08/05/18 11:27 Pulse Ox 96 08/05/18 11:27 - Orders/Labs/Meds Orders: Active Orders 24 hr Category Date Time Status CBC WITH AUTO DIFF [HEME] Stat Lab 08/05/18 11:51 Received COMPREHENSIVE METABOLIC PN,CMP [CHEM] Stat Lab 08/05/18 11:51 Received CULTURE WOUND [RM] Stat Lab 08/05/18 11:39 Received Meds: Medications Discontinued Medications Generic Name Dose Route Start Last Admin Trade Name Freq PRN Reason Stop Dose Admin Ceftriaxone Sodium 1 gm 08/05/18 11:25 08/05/18 12:03 Rocephin IM 08/05/18 11:26 1 gm ONETIME ONE Administration Lidocaine HCl 2.1 ml 08/05/18 11:30 08/05/18 11:35 Xylocaine 1% INJECT 08/05/18 11:31 Not Given ONETIME ONE Lidocaine HCl 2.1 ml 08/05/18 11:33 08/05/18 12:03 Xylocaine-Mpf 1% INJECT 08/05/18 11:34 2.1 ml ONETIME ONE Administration Departure - Departure Time of Disposition: 12:08 Disposition: Home, Self-Care 01 Condition: Good Clinical Impression: Cellulitis - Discharge Information Referrals: PCP,None [Primary Care Provider] - Forms: ED Department Discharge Additional Instructions: The following information is given to patients seen in the emergency department who are being discharged to home. This information is to outline your options for follow-up care. We provide all patients seen in our emergency department with a follow-up referral. The need for follow-up, as well as the timing and circumstances, are variable depending upon the specifics of your emergency department visit. If you don't have a primary care physician on staff, we will provide you with a referral. We always advise you to contact your personal physician following an emergency department visit to inform them of the circumstance of the visit and for follow-up with them and/or the need for any referrals to a consulting specialist. The emergency department will also refer you to a specialist when appropriate. This referral assures that you have the opportunity for followup care with a specialist. All of these measure are taken in an effort to provide you with optimal care, which includes your followup. Under all circumstances we always encourage you to contact your private physician who remains a resource for coordinating your care. When calling for followup care, please make the office aware that this follow-up is from your recent emergency room visit. If for any reason you are refused follow-up, please contact the [facility] emergency department at and asked to speak to the emergency department charge nurse. [facility] [address] [place] [id number] Bactrim clindamycin as prescribed follow-up for recheck with clinic and/or emergency department as needed as discussed and return as needed as discussed - My Orders Last 24 Hours: My Active Orders 08/05/18 11:39 CULTURE WOUND [RM] Stat 08/05/18 11:51 CBC WITH AUTO DIFF [HEME] Stat COMPREHENSIVE METABOLIC PN,CMP [CHEM] Stat - Assessment/Plan Last 24 Hours: My Active Orders 08/05/18 11:39 CULTURE WOUND [RM] Stat 08/05/18 11:51 CBC WITH AUTO DIFF [HEME] Stat COMPREHENSIVE METABOLIC PN,CMP [CHEM] Stat
[2018-08-05 12:28] LABS: CHLORIDE,CL 105 mmol/L (98-107); SODIUM,NA 138 mmol/L (136-148)
== END 2018-08-05 13:20 | disposition home or self-care (01) ==
LOC: MW.ED 10:58
DX: L03.211 Cellulitis of face (principal); E66.9 Obesity, unspecified; Z91.030 Bee allergy status
CPT/HCPCS: 36415; 80053; 85025; 87070; 87077; 87186; 96372; 99283; J0696; J2001

== ENCOUNTER 2018-10-26 19:07 | Emergency (ER) | payer OTHER ==
--- NOTE | 2018-10-26 19:35 | EDM.PDOC ---
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 Review of systems: As per history of present illness and below otherwise all systems reviewed and negative. Past medical history: As per history of present illness and as reviewed below otherwise noncontributory. Surgical history: As per history of present illness and as reviewed below otherwise noncontributory. Social history: No reported history of drug or alcohol abuse. Family history: As per history of present illness and as reviewed below otherwise noncontributory. Physical exam: HEENT: Atraumatic, normocephalic, pupils reactive, negative for conjunctival pallor or scleral icterus, mucous membranes moist, throat clear, neck supple, nontender, trachea midline. Lungs: Clear to auscultation, breath sounds equal bilaterally, chest nontender. Heart: S1S2, regular, negative for clicks, rubs, or JVD. Abdomen: Soft, nondistended, nontender. Negative for masses or hepatosplenomegaly. Negative for costovertebral tenderness. Pelvis: Stable nontender. Genitourinary: Deferred. Rectal: Deferred. Extremities: Petechial type rash from his distal forefoot bilaterally to his proximal leg and the exact distribution of the compression stockings. Neuro: Awake, alert, oriented. Cranial nerves II through XII unremarkable. Cerebellum unremarkable. Motor and sensory unremarkable throughout. Exam nonfocal. Diagnostics: CBC CMP PT/INR Therapeutics: None Impression: #1 petechial rash etiology to be determined Definitive disposition and diagnosis as appropriate pending reevaluation and review of above. - Related Data Allergies Allergy/AdvReac Type Severity Reaction Status Date / Time bee pollen Allergy Cannot Verified 10/26/18 19:21 Remember bee venom protein (honey bee) Allergy Cannot Verified 10/26/18 19:21 Remember Home Meds: Home Meds rifAMPin [Rifampin] 300 mg PO BID 10/26/18 [History] Past Medical History - Past Health History Medical/Surgical History: Denies Medical/Surgical History HEENT History: Reports: None Cardiovascular History: Reports: None Respiratory History: Reports: PE Other Respiratory History: current dx of PE Gastrointestinal History: Reports: None Genitourinary History: Reports: None Musculoskeletal History: Reports: None Neurological History: Reports: None Psychiatric History: Reports: None Endocrine/Metabolic History: Reports: Obesity/BMI 30+ Hematologic History: Reports: None Immunologic History: Reports: None Oncologic (Cancer) History: Reports: None Dermatologic History: Reports: None - Infectious Disease History Infectious Disease History: Reports: TB - Past Surgical History Head Surgeries/Procedures: Reports: None Social & Family History - Family History Family Medical History: Noncontributory Endocrine/Metabolic: Reports: Diabetes, type II, Other (See Below) Other Endocrine/Metabolic Family History: Father has diabetes - Tobacco Use Smoking Status *Q: Never Smoker Second Hand Smoke Exposure: No - Caffeine Use Caffeine Use: Reports: None - Recreational Drug Use Recreational Drug Use: No - Living Situation & Occupation Living situation: Reports: 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 ED EXAM, SKIN/RASH Exam: See Below (See dictation) Course - Vital Signs Last Recorded V/S: Last Vital Signs Temp 36.3 C 10/26/18 19:22 Pulse 87 10/26/18 19:22 Resp 16 10/26/18 19:22 BP 119/70 10/26/18 19:22 Pulse Ox 95 10/26/18 19:22 - Orders/Labs/Meds Labs: Laboratory Tests 10/26/18 10/26/18 10/26/18 Range/Units 19:41 19:41 19:41 WBC 4.72 (4.0-11.0) K/uL RBC 4.84 (4.50-5.90) M/uL Hgb 13.0 (13.0-17.0) g/dL Hct 39.5 (38.0-50.0) % MCV 81.6 (80.0-98.0) fL MCH 26.9 L (27.0-32.0) pg MCHC 32.9 (31.0-37.0) g/dL RDW Std Deviation 43.1 (28.0-62.0) fl RDW Coeff of Isael 14 (11.0-15.0) % Plt Count 148 L (150-400) K/uL MPV 8.60 (7.40-12.00) fL Neut % (Auto) 52.2 (48.0-80.0) % Lymph % (Auto) 30.7 (16.0-40.0) % [place] % (Auto) 10.2 (0.0-15.0) % Eos % (Auto) 6.1 (0.0-7.0) % Baso % (Auto) 0.8 (0.0-1.5) % Neut # (Auto) 2.5 (1.4-5.7) K/uL Lymph # (Auto) 1.5 (0.6-2.4) K/uL [place] # (Auto) 0.5 (0.0-0.8) K/uL Eos # (Auto) 0.3 (0.0-0.7) K/uL Baso # (Auto) 0.0 (0.0-0.1) K/uL Nucleated RBC % 0.0 /100WBC Nucleated RBCs # 0 K/uL INR 0.96 Sodium 142 (136-148) mmol/L Potassium 3.7 (3.5-5.1) mmol/L Chloride 106 (98-107) mmol/L Carbon Dioxide 28.8 (21.0-32.0) mmol/L BUN 16 (7.0-18.0) mg/dL Creatinine 1.1 (0.8-1.3) mg/dL Est Cr Clr Drug Dosing 100.67 mL/min Estimated GFR (MDRD) > 60.0 ml/min Glucose 154 H (74-106) mg/dL Calcium 8.5 (8.5-10.1) mg/dL Total Bilirubin 0.3 (0.2-1.0) mg/dL AST 24 (15-37) IU/L ALT 79 H (14-63) IU/L Alkaline Phosphatase 92 (46-116) U/L Total Protein 6.9 (6.4-8.2) g/dL Albumin 3.0 L (3.4-5.0) g/dL Globulin 3.9 (2.6-4.0) g/dL Albumin/Globulin Ratio 0.8 L (0.9-1.6) Departure - Departure Time of Disposition: 20:46 Disposition: Home, Self-Care 01 Condition: Good Clinical Impression: Petechial rash - Discharge Information Referrals: PCP,None [Primary Care Provider] - Forms: ED Department Discharge Additional Instructions: The following information is given to patients seen in the emergency department who are being discharged to home. This information is to outline your options for follow-up care. We provide all patients seen in our emergency department with a follow-up referral. The need for follow-up, as well as the timing and circumstances, are variable depending upon the specifics of your emergency department visit. If you don't have a primary care physician on staff, we will provide you with a referral. We always advise you to contact your personal physician following an emergency department visit to inform them of the circumstance of the visit and for follow-up with them and/or the need for any referrals to a consulting specialist. The emergency department will also refer you to a specialist when appropriate. This referral assures that you have the opportunity for followup care with a specialist. All of these measure are taken in an effort to provide you with optimal care, which includes your followup. Under all circumstances we always encourage you to contact your private physician who remains a resource for coordinating your care. When calling for followup care, please make the office aware that this follow-up is from your recent emergency room visit. If for any reason you are refused follow-up, please contact the [facility] emergency department at and asked to speak to the emergency department charge nurse. Stop rifampin follow-up primary medical doctor as discussed discontinue compression stockings as directed return as needed as discussed
[2018-10-26 20:07] LABS: CHLORIDE,CL 106 mmol/L (98-107); SODIUM,NA 142 mmol/L (136-148)
== END 2018-10-26 20:55 | disposition home or self-care (01) ==
LOC: MW.ED 19:07
DX: R23.3 Spontaneous ecchymoses (principal); E66.9 Obesity, unspecified; Z91.030 Bee allergy status
CPT/HCPCS: 36415; 80053; 85025; 85610; 99282; 99283